=== PATIENT | male | born 1990 | race Caucasian/White ===

== ENCOUNTER 2017-03-21 08:35 | Emergency (ER) | payer OTHER ==
[~2017-03-21] VITALS: Ht 175.3 cm; Wt 77.4 kg
[2017-03-21 08:36] VITALS: BP 124/80
--- NOTE | 2017-03-21 10:56 | REP ---
CT LUMBAR SPINE WITHOUT CONTRAST: HISTORY: Injury. There is no disc bulge or herniation at the L1-2 through L3-4 and L5-S1 levels. The nerves exit the neural foramina without compression. A diffuse disc bulge is present at the L4-5 level. This abuts the thecal sac. The L4 nerves exit the neural foramina without compression. The intervertebral discs and vertebral bodies are normal in height. There is no acute fracture or subluxation. IMPRESSION: Diffuse disc bulge at the L4-5 level. This abuts the thecal sac. Signed by Arik Mc MD 03/21/2017 11:09 A
== END 2017-03-21 11:49 | disposition home or self-care (01) ==
LOC: M ED 08:35
DX: M54.16 Radiculopathy, lumbar region (principal); M54.17 Radiculopathy, lumbosacral region; M51.26 Other intervertebral disc displacement, lumbar region; M51.27 Other intervertebral disc displacement, lumbosacral region; X50.1XXA Overexertion from prolonged static or awkward postures, initial encounter; Y92.9 Unspecified place or not applicable; Y93.89 Activity, other specified; Y99.9 Unspecified external cause status; Z88.1 Allergy status to other antibiotic agents